=== PATIENT | female | born 1960 | race Hispanic/Latino ===

== ENCOUNTER 2022-10-22 16:37 | Emergency (ER) | payer OTHER ==
[~2022-10-22] VITALS: Ht 149.9 cm; Wt 54.4 kg
[2022-10-22] MEDS ORDERED: ACET-66 PO (19:09)
[2022-10-22 19:28] VITALS: BP 115/72
[2022-10-22] MEDS ORDERED: KETOROLAC 30MG VIAL (30MG/ML) IM ONE (19:30)
[2022-10-22] MEDS ORDERED: DEXAMETHASONE SOD PHOSPHATE 4 MG/ML 1ML VIAL IVP ONE (19:30)
== END 2022-10-22 19:38 | disposition home or self-care (01) ==
LOC: EDH 16:37
DX: J02.9 Acute pharyngitis, unspecified (principal); I10 Essential (primary) hypertension; Z20.822 Contact with and (suspected) exposure to COVID-19; Z90.710 Acquired absence of both cervix and uterus; Z90.89 Acquired absence of other organs
CPT/HCPCS: 99284; 96374; 87635; 87880; 87804 ×2; 96372; J1100; C9803; J1885

== ENCOUNTER → 2024-10-12 | Outpatient (CLI) | payer BC ==
[~2024-10-12] MED LIST: ATOR40TA69 PO; CLOP-31 PO; FLUT16H NASAL; METF-444 PO; METO5 PO; METO50TA9 PO; PANT40TA55 PO; SUCR1TAB PO; VENL75 PO
[2024-10-12 13:18] LABS: ALBUMIN 3.8 g/dL (3.5-5.0); BILIRUBIN,TOTAL 0.4 mg/dL (0.2-1.0); CREATININE 0.6 mg/dL (0.5-1.0); POTASSIUM 4.1 mmol/L (3.5-5.1); TOTAL PROTEIN, SERUM 7.2 g/dL (6.0-8.3)
== END | disposition home or self-care (01) ==
LOC: LAB 08-25 11:28
PROVIDERS: ATTEND Internal Medicine Cardiovascular Disease
DX: I21.4 Non-ST elevation (NSTEMI) myocardial infarction (principal); E78.00 Pure hypercholesterolemia, unspecified
CPT/HCPCS: 36415; 80053; 80061